=== PATIENT | female | born 1990 | race Caucasian/White ===

== ENCOUNTER 2017-01-30 22:40 | Emergency (ER) | payer OTHER ==
[~2017-01-30] VITALS: Ht 160 cm; Wt 54.4 kg
--- NOTE | ~2017-01-30 | EKG ---
PATIENT: LUIS MIGUEL LEAL UNIT #: [id number] Ventricular Rate: 104 BPM Atrial Rate: 104 BPM P-R Interval: 130 ms QRS Duration: 96 ms Q-T Interval: 342 ms QTC Calculation(Bezet): 449 ms P [place]: 59 degrees Calculated R [place]: 26 degrees Calculated T [place]: 52 degrees Diagnosis Line: Sinus tachycardia Diagnosis Line: Possible Left atrial enlargement Diagnosis Line: Incomplete right bundle branch block Diagnosis Line: Abnormal ECG Diagnosis Line: No previous ECGs available Diagnosis Line: Confirmed by JULIET LACEY MD ([id number]) on 02/01/2017 Diagnosis Line: 7:27:04 AM INTERPRETING MD: ABHIJIT RODAS
--- NOTE | ~2017-01-30 | CR72 ---
[facility] Service of [facility] & [facility] RADIOLOGY TEXT RESULTS PATIENT: LUIS MIGUEL LEAL LOCATION: [facility] : 89 UNIT #: [id number] AGE: [address]: Scott Mo MD SEX: F ORDER DR: [id number] [facility] [address] [place], [place] [address] [id number] E MR#: [id number] Acc #: [id number] NAME: LUIS MIGUEL LEAL : 1990 SEX: F STUDY DATE/TIME: 01/30/2017 23:38 UNIT: [facility] ROOM: STUDY DESCRIPTION: CR Chest Single View Portable Attending Physician: Scott Mo M.D. Ordering Physician: Scott Mo M.D. Primary Care Physician: Primary Care Physician No MEDICAL IMAGING REPORT This report is preliminary unless electronic signature is present EXAM Portable chest HISTORY Left side chest pain, fever and shortness of air today. FINDINGS The cardiac size and pulmonary vascularity are normal. Mild right thoracic curve. Approximately 1.0 cm nodule projected over the lateral right upper lung. Suggest comparison to prior x-rays if available. Old lower right rib fractures. No airspace consolidation or pleural effusion. IMPRESSION 1. No acute findings in the lungs. 2. No pleural effusions. 3. 10.0 mm nodular density over the lateral right upper lung. Comparison to prior outside chest x-rays if available is recommended. Otherwise, consider followup chest x-ray in 3-6 months. Dictated by... Tez Zamorano M.D. THIS IS AN ELECTRONICALLY VERIFIED REPORT Tez Zamorano M.D. at 02/01/2017 4:14 AM Luh TD: 01/31/2017 08:44 JOB #: [id number] MEDICAL IMAGING REPORT Page 1 of 1 COPY
[~2017-01-30 22:40] MED LIST: BACTRIM DS TABL1 TA1 PO; LEVAQUIN PO; PERCOCET 10/3251 TAB PO
[2017-01-30 23:44] LABS: BASOPHIL% 0.2 % (0-2.5); EOSINOPHIL% 0.2 % (0.0-7.0); HEMATOCRIT 37.1 % (35.0-45.0); HEMOGLOBIN 12.3 gm/dL (12.0-16.0); LYMPHOCYTE# 1.6 X10e3 (1.0-3.5); LYMPHOCYTE% 9.1 % (17.0-45.0); MEAN CORPUSCULAR HEMOGLOBIN 27.5 PG (28-34); MEAN CORPUSCULAR HGB CONC 33.1 g/dL (30-36); MONOCYTE% 5.5 % (3.0-12.0); NEUTROPHIL# 14.7 X10e3 (1.5-7.1); PLATELET COUNT 313 X10e3 (140-420); RED BLOOD COUNT 4.47 X10e (3.90-5.30); RED CELL DISTRIBUTION WIDTH 16.6 % (11.0-15.5); WHITE BLOOD COUNT 17.3 X10e3 (4.0-10.5)
[2017-01-30 23:45] LABS: POC - CKMB 1.4 ng/mL (0.0-7.9); POC - TROPONIN <0.05 ng/mL (<=0.05)
[2017-01-30 23:45] LABS: DIFF IND YES
[2017-01-30 23:58] LABS: ALBUMIN SERUM 4.8 g/dL (3.5-5.0); BILIRUBIN, DIRECT 0.2 mg/dL (0.0-0.2); BILIRUBIN,INDIRECT 1.3 mg/dL (0.0-0.9); BILIRUBIN,TOTAL 1.5 mg/dL (0.2-2.0); BUN/CREATININE RATIO 26.25; CALCIUM SERUM 9.1 mg/dL (8.4-10.2); CREATININE SERUM 0.8 mg/dL (0.6-1.4); GLOM FILT RATE Estimated 101.1 mL/min (>60); POTASSIUM 3.9 mmol/L (3.5-5.1); PROTEIN TOTAL SERUM 8.7 g/dL (6.0-8.3)
[2017-01-31 00:02] LABS: PLATELET ESTIMATE NORMAL (NORMAL)
[2017-01-31 00:03] LABS: ANISOCYTOSIS SL; OVALOCYTES PRESENT
== END 2017-01-31 00:20 | disposition left against medical advice (07) ==
LOC: CED 22:40
PROVIDERS: Emergency Medicine
DX: R50.9 Fever, unspecified (principal); F17.210 Nicotine dependence, cigarettes, uncomplicated; Z88.5 Allergy status to narcotic agent
CPT/HCPCS: 36415; 71010; 80048; 80076; 82553; 83605; 84484; 85025; 87040; 87077; 87186; 93005; 96361; 96374; 99285; J1885

== ENCOUNTER 2017-01-31 14:18 | Inpatient (IN) | payer OTHER ==
[~2017-01-31] VITALS: Ht 160 cm; Wt 62.0 kg
--- NOTE | ~2017-01-31 | MR112 ---
[facility] A Service of [facility] & [facility] RADIOLOGY TEXT RESULTS PATIENT: LUIS MIGUEL LEAL LOCATION: C2A 218-01 : [birth year] UNIT #: [id number] AGE: [address]: Jerald Dwyer MD SEX: F ORDER DR: [id number] [facility] [address] [place] [address] [place], [place] [address] [id number] I MR#: [id number] Acc #: [id number] NAME: LUIS MIGUEL LEAL : 1990 SEX: F STUDY DATE/TIME: 02/03/2017 12:36 UNIT: [facility] ROOM: 578 STUDY DESCRIPTION: MR Lumbar WWo Contrast Attending Physician: Usman Aponte M.D. Ordering Physician: Usman Aponte M.D. Primary Care Physician: No Primary Care Physician MRI CENTER REPORT This report is preliminary unless electronic signature is present. EXAM MRI of the lumbar spine with and without contrast, dated 02/03/2017. COMPARISON MRI thoracic spine with and without contrast, dated 02/03/2017. HISTORY Patient has pain in the mid and low back towards the right side for the last 2 months. FINDINGS Multisequence, multiplanar imaging of the lumbar spine was obtained with and without contrast. GFR measured greater than 60. 10 mL of MultiHance was administered intravenously. Vertebral body heights and alignment are preserved. Minimal degenerative disc signal loss is at L4-5. Conus terminates at inferior T12 close to T12-L1 disc. Signal of conus and cauda equina are within normal limits. Pre and paravertebral soft tissues do not demonstrate any significant abnormality. L1-2 to L3-4: Unremarkable. L4-5: Mild concentric disc bulge with superimposed small left foraminal to extraforaminal broad-based protrusion with mild inferior left neural foraminal narrowing. Tiny central protrusion is seen with no significant canal stenosis. L5-S1: Unremarkable. IMPRESSION 1. Mild degenerative changes are noted in the lumbar spine at L4-5 as described above. There is severe left foraminal to extraforaminal protrusion with mild left neural foraminal encroachment without significant nerve impingement. STS. [facility] A Service of [facility] & [facility] RADIOLOGY TEXT RESULTS PATIENT: LUIS MIGUEL LEAL LOCATION: A 218-01 : [birth year] UNIT #: [id number] AGE: [address]: Jerald Dwyer MD SEX: F ORDER DR: 2. No canal stenosis. 3. No abnormal enhancing lesions are noted in the spine. 4. Conus and cauda equina are within normal limits. Dictated by... Jamal Quesada M.D. THIS IS AN ELECTRONICALLY VERIFIED REPORT Jamal Quesada M.D. at 02/08/2017 7:04 PM CPR/jt TD: 02/03/2017 19:24 JOB #: [id number] MRI CENTER REPORT Page 1 of 1 COPY
--- NOTE | ~2017-01-31 | EKG ---
PATIENT: LUIS MIGUEL LEAL UNIT #: [id number] Ventricular Rate: 100 BPM Atrial Rate: 100 BPM P-R Interval: 132 ms QRS Duration: 92 ms Q-T Interval: 338 ms QTC Calculation(Bezet): 436 ms P [place]: 53 degrees Calculated R [place]: 24 degrees Calculated T [place]: 45 degrees Diagnosis Line: Normal sinus rhythm Diagnosis Line: Normal ECG Diagnosis Line: When compared with ECG of 30-JAN-2017 23:20, Diagnosis Line: (unconfirmed) Diagnosis Line: Incomplete right bundle branch block is no longer Diagnosis Line: Present Diagnosis Line: Confirmed by JULIET LACEY MD ([id number]) on 02/01/2017 Diagnosis Line: 7:17:12 PM INTERPRETING MD: ABHIJIT RODAS
--- NOTE | ~2017-01-31 | MR175 ---
[facility] A Service of [facility] & [facility] RADIOLOGY TEXT RESULTS PATIENT: LUIS MIGUEL LEAL LOCATION: A 218-01 : [birth year] UNIT #: [id number] AGE: [address]: Jerald Dwyer MD SEX: F ORDER DR: [id number] [id number] [facility] [place], [place] [address] [id number] I MR#: [id number] Acc #: [id number] NAME: LUIS MIGUEL LEAL : 1990 SEX: F STUDY DATE/TIME: 02/03/2017 12:16 UNIT: [facility] ROOM: 578 STUDY DESCRIPTION: MR Thoracic WWo Contrast Attending Physician: Usman Aponte M.D. Ordering Physician: Usman Aponte M.D. Primary Care Physician: Primary Care Physician No MRI CENTER REPORT This report is preliminary unless electronic signature is present. EXAM MRI of the thoracic spine with and without contrast dated 02/03/2017 COMPARISON MRI lumbar spine with and without contrast dated 02/03/2017, CT angiogram chest PE protocol dated 01/31/2017. HISTORY Mid back pain on the right side for 2 months. No history of trauma or cancer. TECHNIQUE Multisequence multiplanar imaging of the thoracic spine was obtained with and without contrast. GFR measured greater than 60. 10 mL of MultiHance was administered intravenously. FINDINGS Vertebral body heights and alignment are preserved. Intervertebral disc heights and signal are intact. No focal disc lesion, canal stenosis or neural foraminal narrowing. There is mild to moderate right-sided pleural effusion with underlying atelectasis. There is also an oval alveolar infiltrate noted on the left lower lobe, incompletely characterized on the current study. Refer to CT angiogram chest from earlier this week. Right upper lobe lung nodule is also seen in the coronal T2-weighted sequence (series 3, image 12). IMPRESSION 1. Thoracic spine does not demonstrate any significant abnormality. Cord is unremarkable. 2. There are some chest findings. They are better described and visualized in the CT angiogram chest from 01/31/2017. Refer to it. Dictated by... [facility] A Service of [facility] & [facility] RADIOLOGY TEXT RESULTS PATIENT: LUIS MIGUEL LEAL LOCATION: [facility] 218-01 : [birth year] UNIT #: [id number] AGE: [address]: Jerald Dwyer MD SEX: F ORDER DR: Jamal Quesada M.D. THIS IS AN ELECTRONICALLY VERIFIED REPORT Jamal Quesada M.D. at 02/08/2017 7:04 PM CPR/to TD: 02/03/2017 19:10 JOB #: [id number] MRI CENTER REPORT Page 1 of 1 COPY
--- NOTE | ~2017-01-31 | MR18 ---
[facility] A Service [facility] RADIOLOGY TEXT RESULTS PATIENT: LUIS MIGUEL LEAL LOCATION: [facility]01-03 : [birth year] UNIT #: [id number] AGE: [address]: Jerald Dwyer MD SEX: F ORDER DR: [id number] [address] [address] [id number] I MR#: [id number] Acc #: [id number] NAME: LUIS MIGUEL LEAL : 1990 SEX: F STUDY DATE/TIME: 02/04/2017 11:10 UNIT: [facility] ROOM: [facility] STUDY DESCRIPTION: MR Brain Wo Contrast Attending Physician: Usman Aponte M.D. Ordering Physician: Elle Pacheco M.D. Primary Care Physician: No Primary Care Physician MRI CENTER REPORT This report is preliminary unless electronic signature is present. EXAM MR brain without contrast. INDICATIONS Acute right eye vision changes. Septic pulmonary emboli. MRSA bacteremia. TECHNIQUE Multisequence, multiplanar MR imaging of the brain was performed without contrast. COMPARISON No comparisons available. FINDINGS No acute infarct on diffusion weighted imaging. No evidence of hydrocephalus or focal mass lesion. No mass effect or midline shift. Greater neck images are unremarkable. Included orbits and paranasal sinuses are unremarkable. IMPRESSION Negative noncontrast MRI of the brain. Dictated by... Jerry Mason M.D. THIS IS AN ELECTRONICALLY VERIFIED REPORT Jerry Mason M.D. at 02/07/2017 7:20 AM MADDY/brandie TD: 02/04/2017 23:10 JOB #: [id number] [facility] A Service [facility] RADIOLOGY TEXT RESULTS PATIENT: LUIS MIGUEL LEAL LOCATION: [facility] : [birth year] UNIT #: [id number] AGE: [address]: Jerald Dwyer MD SEX: F ORDER DR: MRI CENTER REPORT Page 1 of 1 COPY
--- NOTE | ~2017-01-31 | HP ---
Unit #: [id number] #: [id number] Patient: LUIS MIGUEL LEAL [id number] [address] [address] [id number] I MR#: [id number] NAME: LUIS MIGUEL LEAL ROOM: 577 Age: 26 Sex: F Admission Date: 01/31/2017 : 1990 Attending Physician: Daniella Vidal M.D. Primary Care Physician: Primary Care Physician No HISTORY AND PHYSICAL CHIEF COMPLAINT Rib pain with septic pulmonary emboli. HISTORY OF PRESENT ILLNESS This 26-year-old female with history of polysubstance abuse, Hepatitis-C, is admitted for septic pulmonary emboli. The patient was well until 2 days prior to admission when she began to experience bilateral pleuritic rib pain. She actually was seen in this emergency department late last evening but left AMA after there were concerns that she was possibly injecting drugs in the bathroom. Blood cultures were performed with one sats positive for gram positive cocci in chains. The patient returned to this emergency department with a low-grade fever, complaining of increasing rib pain. She was bolused with 2 liters of saline, and given Zosyn, Vancomycin, along with Ibuprofen and Tylenol. On examination she is quite diaphoretic, I believe I do hear a soft systolic murmur along the left sternal border. CT scan performed shows bilateral multiple nodular opacities with an area of cavitation concerning for septic pulmonary emboli. The patient denies cough with the above or any other symptoms. PAST MEDICAL HISTORY 1. Polysubstance abuse. The patient obtains needles through the needle exchange program, and states that uses clean needles. 2. Admission for hand cellulitis about 2014 treated with antibiotics. 3. Hepatitis-C. SOCIAL HISTORY The patient lives alone. She smokes 1 pack per day of tobacco, denies alcohol use, denies possibility of . She injects heroin. FAMILY HISTORY Diabetes mellitus. ALLERGIES Morphine. MEDICATIONS None. REVIEW OF SYSTEMS Notable for bilateral rib pain, diaphoresis, polysubstance abuse, Hepatitis-C, tobacco abuse. All other systems were reviewed and otherwise negative. Unit #: [id number] #: [id number] Patient: LUIS MIGUEL LEAL PHYSICAL EXAMINATION GENERAL APPEARANCE: Diaphoretic 26-year-old thin female, currently in no acute distress. VITAL SIGNS: Temp was as high at 100.4, pulse 108, respirations 16, B/P 133/85, O2 saturation 100% on room air. HEENT: Eyes - PERRLA, extraocular muscles are intact. Pharynx is benign. NECK: Supple without adenopathy or thyromegaly. CHEST: Clear. HEART: Normal S1 and S2 with a very soft systolic murmur I believe left sternal border and perhaps at the right upper sternal border. ABDOMEN: Bowel sounds are present. Bladder is full but otherwise no masses, no hepatosplenomegaly or tenderness. EXTREMITIES: Without edema. The patient has nail samoan making it difficulty for me to look for splinter hemorrhages over the fingernails, however on her arms multiple track anne are noted. NEUROLOGIC: The patient is mildly somnolent but easily arousable. Cranial nerves are intact and she has equal strength throughout. DIAGNOSTIC STUDIES LABORATORY: Hematocrit 32.9, white blood count 11, MCV 82, normal platelet count. Normal coags. SMA12 - sodium 131, chloride 98. Beta HCG negative. Urine tox screen positive for amphetamines, marijuana and opiates. Urinalysis is negative. IMAGING: Chest x-ray yesterday 1 cm lateral right lung density. CTA of the chest was performed tonight which was negative for PE. Multiple nodular opacities bilaterally with an area of consolidation concerning for multifocal infection, especially for septic pulmonary emboli. CARDIOVASCULAR: EKG - sinus rhythm, rate 100. Somewhat poor R-wave progression in V1 through V3, but unchanged from yesterday. ASSESSMENT 1. Septic pulmonary emboli, rule out tricuspid valve endocarditis. 2. Active polysubstance abuse. 3. Hepatitis-C. PLAN 1. Vancomycin and Zosyn will be continued pending cultures. 2. Infectious Disease to see consultation. 3. Obtain echo, patient may need a CORETTA. 4. Medications for opiate withdrawal. Of note, the patient's systolic blood pressure was as low as 90 in the ER, so I will not give Clonidine at this time. 5. Florastor. 6. DVT prophylaxis. 7. Check HIV. 8. Long-term prognosis is very guarded if the patient continues with IV drug abuse. At this point of time she does not wish to speak with social work. STAT * RESULT Dictated by Daniella Vidal M.D. Unit #: [id number] #: [id number] Patient: LUIS MIGUEL LEAL AML/ljd TD: 02/01/2017 03:25 JOB #: [id number] HISTORY AND PHYSICAL Page 1 of 1 X Daniella Vidal MD X HISTORY AND PHYSICAL
--- NOTE | ~2017-01-31 | CT16 ---
[facility] of [facility] RADIOLOGY TEXT RESULTS PATIENT: LUIS MIGUEL LEAL LOCATION: [facility] 578-01 : [birth year] UNIT #: [id number] AGE: [address]: Usman Aponte MD SEX: F ORDER DR: [id number] [place] [id number] [facility]. [place], [place] [address] [id number] I MR#: [id number] Acc #: [id number] NAME: LUIS MIGUEL LEAL : 1990 SEX: F STUDY DATE/TIME: 01/31/2017 19:57 UNIT: [facility] ROOM: [facility] STUDY DESCRIPTION: CT Angio Chest for PE Attending Physician: Daniella Vidal M.D. Ordering Physician: Chelsey Platt M.D. Primary Care Physician: No Primary Care Physician MEDICAL IMAGING REPORT This report is preliminary unless electronic signature is present EXAM CTA chest with contrast, 01/31/2017. HISTORY 26-year-old female with shortness of air for 2 days. History of IV drug abuse. COMPARISON None TECHNIQUE Helical scan performed through the chest following the timed bolus administration of IV contrast per PE protocol. Coronal 3-D MIP reconstructions. Sagittal reformatted images. This CT exam was performed with one or more of the following radiation dose reduction techniques: automatic exposure control, adjustment of mA and/or kV according to patient size, and iterative reconstruction. FINDINGS There is adequate opacification of the pulmonary arteries with no filling defects demonstrated. Thoracic aorta normal in course and caliber without dissection. Heart size is normal. No pericardial effusion. There are multiple nodular opacities noted throughout both lungs. There is a larger nodular opacity in the apical segment of the left lower lobe with developing cavitation. These findings are concerning for septic emboli and multifocal infection. No pleural effusions. No pneumothorax. Visualized upper abdomen is unremarkable. No acute bony abnormality. IMPRESSION 1. Negative for pulmonary emboli. [facility] A [facility] of [facility] RADIOLOGY TEXT RESULTS PATIENT: LUIS MIGUEL LEAL LOCATION: [facility] 578-01 : [birth year] UNIT #: [id number] AGE: [address]: Usman Aponte MD SEX: F ORDER DR: 2. Negative for thoracic aortic aneurysm/dissection. 3. Multiple nodular opacities noted throughout both lungs with an area of cavitation in the apical segment of the left lower lobe. Findings most concerning for multifocal infection/septic emboli. Dictated by... Keanu Castaneda M.D. THIS IS AN ELECTRONICALLY VERIFIED REPORT Keanu Castaneda M.D. at 02/01/2017 1:19 PM BYRON/aylin TD: 01/31/2017 23:50 JOB #: [id number] MEDICAL IMAGING REPORT Page 1 of 1 COPY
--- NOTE | ~2017-01-31 | CO ---
Unit #: [id number] #: [id number] Patient: LUIS MIGUEL LEAL [id number] [address] [place], [place] [address] [id number] I MR#: [id number] NAME: LUIS MIGUEL LEAL ROOM: 478 Age: 26 Sex: F Admission Date: 01/31/2017 : 1990 Attending Physician: Usman Aponte M.D. Consultation Date: 02/02/2017 CONSULTATION REPORT REASON FOR CONSULTATION Bacteremia, consult for transesophageal echocardiogram and bradycardia. HISTORY OF PRESENT ILLNESS This is a 26-year-old white female, who came into the emergency room with weakness and right ribcage pain that was pleuritic in nature, cough, fever, and chills. According to information, she came to the emergency room the night before, but left AMA after there was concern that she was possibly injecting drugs in the bathroom. The blood cultures that day were positive for gram-positive cocci unchanged, which later have come back as Strep pyogenes and MRSA. The patient had another set of cultures that is showing Streptococcus pyogenes. The patient said she has been having the symptoms for few days. She does admit to using IV heroin and obtains needles through the needle exchange program and she says she uses clean needles. The patient was bolused with 2 L of saline, given IV antibiotics after repeat cultures. There is on exam is soft systolic murmur along the left sternal border. The patient says a few years back, she was told she had some type of a "hole" in her aortic valve, but has never had a cardiac workup. CT scan of her chest showed bilateral multiple nodular opacities with an area of cavitation, concerning for septic pulmonary emboli. The patient's EKG showed sinus rhythm, poor R-wave progression, but through the night on telemetry, the patient's heart rate would drop in the 50s. 2D echo today shows vfkx-oa-qhgaccza aortic regurgitation, fjep-lv-ulykkite tricuspid regurgitation, with fzkx-jl-iqibvrdr pulmonary artery hypertension. EF was 55% to 60%. No indication of any vegetation, but with her bacteremia along with her symptoms and probable septic pulmonary emboli and bradycardia, they have asked us to assist with evaluation and management. On exam and interview, the patient denies any chest pain. She complains of ribcage area pain. She denies any palpitations. She says she had periods of dizziness when she was using drugs, but no syncopal episode. She denies any increased lower extremity edema and says she has never had ischemic heart disease workup. PAST MEDICAL HISTORY 1. Polysubstance abuse, she admits to using heroin. She also is tested positive for marijuana. She uses needles through the needle exchange program. 2. In 2015, had head cellulitis, treated with antibiotics. 3. Hepatitis C. 4. Nicotine abuse. HOME MEDICATIONS Unit #: [id number] #: [id number] Patient: LUIS MIGUEL LEAL Reports none. ALLERGIES Morphine. SOCIAL HISTORY The patient lives alone. She smokes a pack of cigarettes a day. She denies alcohol or illicit drug abuse. She admits to using IV heroin. She did test positive for marijuana. FAMILY HISTORY Diabetes mellitus in her sibling. REVIEW OF SYSTEMS See details in HPI. PHYSICAL EXAMINATION GENERAL: Ms. Leal is a 26-year-old white female, in no acute respiratory distress. She is awake, alert, and oriented, answers questions appropriately. VITAL SIGNS: Blood pressure is 138/66, heart rate is 108, respirations 18, temperature 98.5, O2 saturations 99% on room air. NECK: Trachea midline. No thyromegaly or lymphadenopathy. Normal carotid upstrokes. No jugular venous distention. HEART: S1, S2. Regular rate and rhythm. Soft systolic murmur at left sternal border over aortic region. LUNGS: Very diminished with some scattered coarse rales in bases, especially in the left lower lung. ABDOMEN: Soft and nontender. EXTREMITIES: Pedal pulses are palpable. No pedal edema. DIAGNOSTIC STUDIES LABORATORY RESULTS: Glucose 111, BUN 8, creatinine 0.5, eGFR is 132.7. Sodium 136, potassium is 3.2, chloride is 108, CO2 of 21, calcium is 8.1, magnesium is 1.9, total protein 7.3, albumin 3.8, bilirubin total 0.9, AST 18, ALT 12, alkaline phosphatase is 61. Lactic acid 0.7. B-hCG qualitative was negative. WBCs 12.9, hemoglobin 10.8, hematocrit 32.7 and platelets is 202. On admission, the patient's hemoglobin was 12.3, hematocrit 37.1, her WBCs were 17.3. Initial cardiac enzymes; CK-MB is 1.4, troponin less than 0.04; CK-MB is 1.4, troponin less than 0.05. HIV is pending. Urine tox screen is positive for amphetamines, marijuana and opiates. Urinalysis; 1+ urobilinogen, otherwise unremarkable. Blood cultures from 01/30/2017 are positive for Streptococcus pyogenes group A and MRSA. Blood cultures from 01/31/2017 are positive for 2 sets growing Streptococcus pyogenes. IMAGING STUDIES: Chest x-ray shows no acute findings except a 10 mm nodular density over the lateral right upper lung. No pleural effusions. Unit #: [id number] #: [id number] Patient: LUIS MIGUEL LEAL CT of the chest with contrast was negative for pulmonary emboli, but did show some multiple nodular opacities throughout both lungs with an area of cavitation in the apical segment of the left lower lung. Findings are concerning for multifocal infection or septic emboli. EKG shows normal sinus rhythm with ventricular rate of 100 beats per minute, poor R-wave progression, some low voltage in lead III. Telemetry shows episodes of sinus bradycardia, heart rate in the 50s, which within a matter of a few seconds have increased back up over 60 beats per minute. No block or pauses noted. IMPRESSION 1. Septic pulmonary emboli, dyspnea, ribcage pain. 2. Active polysubstance abuse. 3. Hepatitis C. 4. Sinus bradycardia. 5. Bacteremia with Streptococcus pyogenes and methicillin-resistant Staphylococcus aureus, nicotine abuse. 6. Polysubstance abuse, heroin and marijuana use. 7. Hypokalemia. PLAN 1. Cardiology consult to assist with evaluation and management. 2. Infectious Disease is requesting a transesophageal echocardiogram to evaluate for bacteremia due to the positive blood cultures, her symptoms and using IV drugs. 3. We will schedule that for in the morning. 4. Discussed with the patient risks and benefits including risk of possible aspiration, esophageal trauma, or reaction to the sedatives. The patient verbalized understanding and agrees to proceed. 5. As far as her bradycardia, she does not have any pauses or appears to have any first-degree AV block or sustained low rate. The lowest has been documented is in the 50s. We will check a TSH. Currently, she is not on any pain medication that should affect her heart rate, though we will continue to monitor her closely. 6. On exam, there are no signs or symptoms of unstable angina and acute congestive heart failure. 7. The patient is on IV antibiotics. 8. Repeat blood cultures have been ordered since she has been on IV antibiotics for over 24 hours. 9. We will obtain a TSH and evaluate. 10. The patient's potassium is being supplemented per protocol. We will monitor her BUN and creatinine, and her electrolytes and supplement as needed. 11. Further recommendations pending per Dr. Shearer and after the [facility]. Dictated by... Valente Monterroso/thai TD: 02/04/2017 08:20 JOB #: [id number] CC: [facility] Cardiology [facility] Unit #: [id number] #: [id number] Patient: LUIS MIGUEL LEAL CONSULTATION REPORT Page 1 of 1 X [place] Nena Singleton APRN X CONSULTATION REPORT
--- NOTE | ~2017-01-31 | CO ---
Unit #: [id number] #: [id number] Patient: LUIS MIGUEL LEAL [id number] [facility] [address] [facility]. [place], [place] [address] [id number] I MR#: [id number] NAME: LUIS MIGUEL LEAL ROOM: 218 Age: 27 Sex: F Admission Date: 01/31/2017 : 1990 Attending Physician: Jerald Dwyer M.D. Primary Care Physician: No Primary Care Physician Consultation Date: 02/05/2017 CONSULTATION REPORT REASON FOR HER CONSULTATION Depression, anxiety, opiate abuse and withdrawal. HISTORY OF PRESENT ILLNESS Ms. Blackman is a 27-year-old white female seen in room 478 bed-1 on 02/05/17 at [facility]. Patient dressed casually, lying comfortably in bed. The patient has a family in the room. Patient reported admitted on the . Has a recent history of IV opiate abuse. Reporting having withdrawals, anxiety, nervousness, restlessness of her legs, trouble sleeping, severe anxiety, hot and cold sweats, mood lability, sad, depressed. Patient denied any suicidal or homicidal ideation, denied any psychotic symptom. Patient vital signs - 97.1, 76, 20, 100/50, oxygen saturation 99%. PAST PSYCHIATRIC HISTORY Remarkable for history of depression, history of IV drug abuse. Drug of choice heroin. No history of any suicide attempt or any inpatient treatment. MEDICAL HISTORY AND MEDICATION HISTORY Medical history is remarkable for: 1. History of hepatitis C. 2. History of MRSA. ALLERGIES Allergies to morphine. HOME MEDICATIONS None. FAMILY HISTORY AND SOCIAL HISTORY The patient has a good support system. No history of abuse. History of substance abuse. Drug of choice heroin. REVIEW OF SYSTEMS Complete review of systems is remarkable except as mentioned above. MENTAL STATUS EXAMINATION VITAL SIGNS: Please see above. GENERAL APPEARANCE: Patient dressed casually in hospital attire, lying comfortably in bed. Attention span and concentration fair. Speech - regular rate, coherent. Oriented in time, place and person. Mood and affect sad, dysphoric. Thought process coherent. Thought content - Unit #: [id number] #: [id number] Patient: LUIS MIGUEL LEAL patient denied any thoughts of harming self or others or any hallucination but anxious, nervous. Recent and memory fair. Language intact. Fund of knowledge fair. Insight and judgment fair to slightly impaired. DIAGNOSIS PSYCHIATRIC: 1. Opiate use disorder, severe - F11.20. 2. Major depressive disorder, recurrent, severe - F33.2. 3. Anxiety disorder, NOS - F40.01. ASSESSMENT/PLAN 1. Supportive psychotherapy and psychoeducation provided to patient. 2. Educated about benefits and side effects of medication and course and prognosis of illness. 3. Advised to start Vistaril 25 mg 3x a day for anxiety. Continue with Neurontin 100 mg twice daily for withdrawal symptoms, Desyrel 50 mg at bedtime for sleep, Requip 1 mg at bedtime for restlessness of her legs. If needed, consider adding Zoloft. Also plan for patient to follow up in [facility] program upon discharge. In the meantime, continue with the current treatment. Please feel free to call if any questions. Telephone number [phone]. Dictated by... Ricardo Augustine/jennifer TD: 02/08/2017 07:21 JOB #: [id number] CONSULTATION REPORT Page 1 of 1 X Scar Sheridan MD X CONSULTATION REPORT
--- NOTE | ~2017-01-31 | CO ---
Unit #: [id number] #: [id number] Patient: LUIS MIGUEL LEAL [id number] [address] [address] [id number] I MR#: [id number] NAME: LUIS MIGUEL LEAL ROOM: 578 Age: 26 Sex: F Admission Date: 01/31/2017 : 1990 Attending Physician: Usman Aponte M.D. Primary Care Physician: Joan Primary Care Physician Requesting Physician: Daniella Vidal M.D. Consultation Date: 02/01/2017 CONSULTATION REPORT REASON FOR CONSULTATION Positive blood cultures. HISTORY OF PRESENT ILLNESS Ms. Leal is a 26-year-old female with a history of polysubstance abuse, hepatitis C, who is being admitted for complaint of pleuritic pain around her ribs for the past few days. She was seen in the emergency department two nights ago but had left AMA at some point for possibly injecting drugs into the bathroom. She stated that she has had this pleuritic pain around her ribs for about the last two days. She denies any back pain, any new cellulitis, new rashes, denies any nausea or vomiting. She does complain of fevers. She stated she last used IV heroin about five days ago. Her current blood cultures are one of two Staph. aureus as well as group A strep. She has a 2-D echo that is pending. She has been started on vancomycin and Zosyn. We are now being consulted for antibiotic management. She also had a CT scan that was performed which was showing bilateral multiple nodular opacities with an area of cavitation concerning for septic emboli. PAST MEDICAL HISTORY Polysubstance abuse, admission for hand cellulitis in 2014 as well as hepatitis C, has also been admitted previously for drug rehabilitation. SOCIAL HISTORY The patient lives alone. She is a current smoker, denies any alcohol use. She is a current IV heroin user. FAMILY HISTORY Noncontributory. ALLERGIES Morphine. CURRENT MEDICATIONS Reviewed. The patient is on Zosyn and vancomycin. REVIEW OF SYSTEMS All negative except for those stated in the HPI. PHYSICAL EXAMINATION GENERAL APPEARANCE: Diaphoretic 26-year (1) female currently up and walking around to the bathroom and back to her bed in no apparent distress. CURRENT VITAL SIGNS: Temperature 98.2. Pulse 70. Respiration 17. Blood Unit #: [id number] #: [id number] Patient: LUIS MIGUEL LEAL pressure 123/58. NECK: Supple. HEENT: Head is normocephalic. Eyes: Pupils equal, round and reactive to light and accommodation. CHEST: Diminished throughout. HEART: Regular rate. ABDOMEN: Soft, nontender, positive bowel sounds. EXTREMITIES: Without edema. The patient typically stated that she injects into her hands. No signs of cellulitis or erythema in bilateral hands or on arms. NEUROLOGIC: Awake, alert, oriented, up and walking around. DIAGNOSTIC STUDIES LABORATORY: Creatinine is 0.5. BUN is 8. Glucose is 111. Potassium is 3.3. White count is 12.9. Hemoglobin is 10.8. Platelets are 202. HIV screen is also negative. Lactic acid is 0.7. Urine drug screen is positive for amphetamines, marijuana and opiates. MICROBIOLOGY DATA: January 30, blood cultures one of two with MRSA and group A strep. Repeat blood cultures are pending. IMAGING: CTA with contrast is concerning for multiple nodular opacities throughout both lungs with an area of cavitation in the apical segment of the left lower lobes concerning for multifocal infectious and septic emboli. ASSESSMENT AND PLAN Staph. aureus and group A strep bacteremia with septic pulmonary emboli in a patient with current IV drug use. At this point, we will rule out infective endocarditis. At this point, the patient denies any type of back pain or leg or joint pain. Doubt any type of discitis or osteomyelitis but will follow closely. We will continue vancomycin and Zosyn at this time. We will follow up on 2-D echo. We will follow up on repeat cultures. Further recommendations to come from , which he will see patient later today. Dictated by... Paty Zabmrano APRN for Ricardo Vanegas TD: 02/02/2017 08:34 JOB #: [id number] CONSULTATION REPORT Page 1 of 1 X X CONSULTATION REPORT
--- NOTE | ~2017-01-31 | CO ---
Unit #: [id number] #: [id number] Patient: LUIS MIGUEL LEAL [id number] [address] [address] [id number] I MR#: [id number] NAME: LUIS MIGUEL LEAL ROOM: 218 Age: 27 Sex: F Admission Date: 01/31/2017 : 1990 Attending Physician: Jerald Dwyer M.D. Primary Care Physician: Primary Care Physician No CONSULTATION REPORT REASON FOR CONSULTATION Followup. DISCUSSION Ms. Luis Miguel Leal is a 27-year-old white female, seen in room 478, bed 1 on 02/07/2017. The patient diagnosed with endocarditis and reported still having problem with sleep and anxiety. The patient is currently on Neurontin, Vistaril, and trazodone. The patient has a history of IV opiate abuse. The patient reported recent use recently. The patient's urine drug screen was positive on for amphetamine, marijuana, opiate. The patient's vital signs; temperature 98.4, pulse 70, respirations 16, blood pressure 138/80, and oxygen saturation 100%. The patient denied any thoughts of harming self or others or any psychotic symptom. REVIEW OF SYSTEMS Complete review of systems is unremarkable except as mentioned above. MENTAL STATUS EXAMINATION The patient's vital signs, please see above. General appearance; the patient dressed casually. Attention span and concentration, fair. Speech, regular rate and coherent. Oriented in time, place, and person. Mood and affect, sad and dysphoric. Thought process, coherent. Thought content, the patient denied any thoughts of harming self or others, but reported having problem with the anxiety and trouble sleeping. Recent and remote memory, fair. Language, intact. Fund of knowledge, fair to slightly impaired. DIAGNOSES Psychiatric: Opioid use disorder, severe, F11.20; amphetamine use disorder, severe, F15.20; cannabis abuse, moderate, F12.20; mood disorder, not otherwise specified, F32.9. Secondary diagnosis: Deferred. Medical diagnosis: Please refer to H and P. Stressors: Psychosocial stressor. ASSESSMENT/PLAN 1. Supportive psychotherapy and psychoeducation provided to the patient. 2. Educated about benefits and side effects of medication and course and prognosis of illness. 3. Recommending at this time to increase Neurontin to 300 mg b.i.d. and increase trazodone to 100 mg at bedtime. If needed, consider further Unit #: [id number] #: [id number] Patient: LUIS MIGUEL LEAL adjustment of medication. Please feel free to call if any question, telephone #[phone]. Dictated by... Ricardo Augustine/thai TD: 02/07/2017 15:05 JOB #: [id number] CONSULTATION REPORT Page 1 of 1 X Scar Sheridan MD X CONSULTATION REPORT
--- NOTE | ~2017-01-31 | TOC ---
Unit #: [id number] #: [id number] Patient: LUIS MIGUEL LEAL [id number] [address] [place], [place] [address] [id number] I MR#: [id number] NAME: LUIS MIGUEL LEAL ROOM: 478 Age: 27 Sex: F Admission Date: 01/31/2017 : 1990 Attending Physician: Jerald Dwyer M.D. Primary Care Physician: Primary Care Physician No TRANSFER OF CARE SUMMARY PRIMARY CARE PROVIDER None PRINCIPAL DIAGNOSES 1. Sepsis secondary to Methicillin-resistant Staphylococcus aureus and Streptococcus pyogenes bacteremia. 2. Septic pulmonary emboli. 3. Right eye vision loss, with pending evaluation. 4. Intravenous drug abuse including heroin and amphetamines. 5. Polysubstance abuse including heroin, amphetamines and marijuana. 6. Hepatitis C. 7. Asymptomatic bradycardia. 8. Tobaccoism. 9. Moderate protein malnutrition. CONSULTANTS Elvis Pollack M.D. - Infectious Disease Zeeetienne Shearer M.D. - Cardiology. PROCEDURES 1. Two-dimensional echocardiogram on February 01, 2017, with an ejection fraction of 60%, mild to moderate aortic regurgitation, mild mitral regurgitation and mild to moderate tricuspid regurgitation noted. Right ventricular systolic pressure of 43 mmHg. 2. Transesophageal echocardiogram on February 03, 2017, with the ejection fraction of 60-65%. No shunt across the anterior atrial septum, mild to moderate aortic regurgitation, mild to moderate mitral regurgitation, mild tricuspid regurgitation noted. No evidence of vegetation or left atrial appendage. Aorta appeared normal. 3. Chest x-ray on January 30, 2017, with no acute findings. There is a 10 mm nodular density over the right upper lobe. 4. CT angiogram of the chest on January 31, 2017, which was negative for PE. Patient had multiple nodular opacities in both lungs with a cavitation segment in the apical segment of the left lower lobe. 5. MRI of thoracic spine with and without contrast on February 03, 2017, without any significant abnormality. No evidence of infection. 6. MRI with and without contrast on February 03, 2017, with degenerative change in the lumbar spine at L4-L5, severe left foraminal to extraforaminal protrusion and left neural foraminal encroachment without severe nerve impingement. No canal stenosis. No evidence of infection. 7. MRI of the brain without contrast on February 04, 2017, which was normal. Unit #: [id number] #: [id number] Patient: LUIS MIGUEL LEAL CLINICAL HISTORY/HOSPITAL COURSE Ms. Leal is a 26-year-old female who presents to the emergency department with rib pain after leaving against medical advice two days prior. Blood cultures from that admission were positive for gram positive cocci in chains. The patient returned to the emergency department with low-grade fever and rib pain. Chest x-ray was done as was CT angiogram of the chest revealing septic pulmonary emboli and the patient was subsequently admitted. Blood cultures were done upon presentation ultimately revealed both Methicillin-resistant Staphylococcus aureus and Streptococcus pyogenes bacteremia. Dr. Pollack was consulted and the patient was placed on appropriate antibiotic therapy. Cardiology was also consulted and the patient underwent transesophageal echocardiogram, which was negative for endocarditis. The patient has refused repeat blood cultures on both February 03 and February 04, but today one blood culture was received and is still currently pending. She is being maintained on IV Vancomycin and clindamycin for now. The source of her bacteremia is unclear and gallium scan is currently pending. MRI of thoracic and lumbar spine was negative. The patient informs me she has had difficulty with right eye vision, described as black spots ever since admission. MRI of the brain was unremarkable and ophthalmology consultation is still currently pending. She is high risk for an intraocular infection given her bacteremia. The patient also had bradycardia with heart rate down to the 50s, but it is asymptomatic. TSH is normal. No further workup planned. The patient also has underlying hepatitis C and will require outpatient treatment. HIV was negative. I anticipate patient will need to be discharged home by a short stay for IV antibiotics, but is still pending, again, ophthalmology and gallium scan and a repeat blood culture. Further hospital course to be dictated as an addendum. Dictated by... Elle Pacheco M.D. [facility]/ally TD: 02/06/2017 17:40 JOB #: [id number] TRANSFER OF CARE SUMMARY Page 1 of 1 X Elle Pacheco MD TRANSFER OF CARE SUMMARY
[2017-01-31 18:27] LABS: POC - CKMB 1.4 ng/mL (0.0-7.9); POC - TROPONIN <0.05 ng/mL (<=0.05)
[2017-01-31 18:37] LABS: BASOPHIL% 0.4 % (0-2.5); EOSINOPHIL% 0.1 % (0.0-7.0); HEMATOCRIT 32.9 % (35.0-45.0); HEMOGLOBIN 11.1 gm/dL (12.0-16.0); LYMPHOCYTE# 1.8 X10e3 (1.0-3.5); LYMPHOCYTE% 16.5 % (17.0-45.0); MEAN CELL VOLUME 82.1 FL (83-96); MEAN CORPUSCULAR HEMOGLOBIN 27.8 PG (28-34); MEAN CORPUSCULAR HGB CONC 33.8 g/dL (30-36); MEAN PLATELET VOLUME 7.6 FL (6.5-11.5); MONOCYTE# 0.8 X10e3 (0-1.0); MONOCYTE% 7.5 % (3.0-12.0); NEUTROPHIL# 8.3 X10e3 (1.5-7.1); NEUTROPHIL% 75.5 % (40-75); PLATELET COUNT 227 X10e3 (140-420); RED BLOOD COUNT 4.01 X10e (3.90-5.30); RED CELL DISTRIBUTION WIDTH 15.8 % (11.0-15.5)
[2017-01-31 18:38] LABS: DIFF IND NO
[2017-01-31 18:54] LABS: PROTHROMBIN TIME (PATIENT) 10.5 SECONDS (10.0-11.7)
[2017-01-31 18:59] LABS: ALBUMIN SERUM 3.8 g/dL (3.5-5.0); BILIRUBIN, DIRECT 0.1 mg/dL (0.0-0.2); BILIRUBIN,INDIRECT 0.8 mg/dL (0.0-0.9); BILIRUBIN,TOTAL 0.9 mg/dL (0.2-2.0); BUN/CREATININE RATIO 18.75; CALCIUM SERUM 8.5 mg/dL (8.4-10.2); CREATININE SERUM 0.8 mg/dL (0.6-1.4); GLOM FILT RATE Estimated 101.1 mL/min (>60); POTASSIUM 3.7 mmol/L (3.5-5.1); PROTEIN TOTAL SERUM 7.3 g/dL (6.0-8.3)
[2017-01-31 19:06] LABS: URINE SOURCE CLEAN CATCH
[2017-01-31 19:12] LABS: URINE APPEARANCE CLEAR; URINE BILIRUBIN NEG (NEG); URINE BLOOD NEG (NEG); URINE COLOR YELLOW; URINE GLUCOSE NEG (NEG); URINE KETONE NEG (NEG); URINE LEUKOCYTE ESTERASE NEG (NEG); URINE NITRATE NEG (NEG); URINE PH 6.5 (5-8); URINE PROTEIN NEG (NEG); URINE SPECIFIC GRAVITY 1.007 (1.003-1.035)
[2017-01-31 19:17] LABS: CULTURE INDICATED? NO
[2017-01-31 19:22] LABS: AMPHETAMINE POS (NEG); BARBITURATES NEG (NEG); BENZODIAZEPINES NEG (NEG); COCAINE NEG (NEG); MARIJUANA POS (NEG); OPIATES POS (NEG); TRICYCLIC ANTIDEPRESSANTS NEG (NEG); U METHADONE NEG (NEG)
[2017-02-01 06:48] LABS: HEMATOCRIT 32.7 % (35.0-45.0); HEMOGLOBIN 10.8 gm/dL (12.0-16.0); MEAN CELL VOLUME 82.6 FL (83-96); MEAN CORPUSCULAR HEMOGLOBIN 27.3 PG (28-34); MEAN CORPUSCULAR HGB CONC 33.1 g/dL (30-36); MEAN PLATELET VOLUME 7.8 FL (6.5-11.5); RED BLOOD COUNT 3.96 X10e (3.90-5.30); RED CELL DISTRIBUTION WIDTH 16.3 % (11.0-15.5); WHITE BLOOD COUNT 12.9 X10e3 (4.0-10.5)
[2017-02-01 07:10] LABS: CALCIUM SERUM 8.1 mg/dL (8.4-10.2); CREATININE SERUM 0.5 mg/dL (0.6-1.4); GLOM FILT RATE Estimated 132.7 mL/min (>60); POTASSIUM 3.3 mmol/L (3.5-5.1)
[2017-02-02 11:18] LABS: MAGNESIUM 1.9 mg/dL (1.6-3.0); POTASSIUM 3.2 mmol/L (3.5-5.1)
[2017-02-02 18:14] LABS: BASOPHIL% 0.3 % (0-2.5); EOSINOPHIL# 0.1 X10e3 (0-0.7); EOSINOPHIL% 0.8 % (0.0-7.0); LYMPHOCYTE# 2.3 X10e3 (1.0-3.5); LYMPHOCYTE% 22.8 % (17.0-45.0); MEAN CELL VOLUME 82.6 FL (83-96); MEAN CORPUSCULAR HEMOGLOBIN 27.6 PG (28-34); MEAN CORPUSCULAR HGB CONC 33.4 g/dL (30-36); MONOCYTE# 0.6 X10e3 (0-1.0); MONOCYTE% 5.9 % (3.0-12.0); NEUTROPHIL% 70.2 % (40-75); PLATELET COUNT 222 X10e3 (140-420); RED BLOOD COUNT 3.99 X10e (3.90-5.30); RED CELL DISTRIBUTION WIDTH 15.8 % (11.0-15.5)
[2017-02-02 18:18] LABS: DIFF IND NO
[2017-02-02 18:32] LABS: INR 0.9; PROTHROMBIN TIME (PATIENT) 10.1 SECONDS (10.0-11.7)
[2017-02-02 18:41] LABS: ALBUMIN SERUM 2.9 g/dL (3.5-5.0); BILIRUBIN,TOTAL 0.3 mg/dL (0.2-2.0); CALCIUM SERUM 8.4 mg/dL (8.4-10.2); CREATININE SERUM 0.5 mg/dL (0.6-1.4); GLOM FILT RATE Estimated 132.7 mL/min (>60); POTASSIUM 3.5 mmol/L (3.5-5.1); PROTEIN TOTAL SERUM 6.1 g/dL (6.0-8.3)
[2017-02-03 07:13] LABS: HEMATOCRIT 30.4 % (35.0-45.0); HEMOGLOBIN 10.2 gm/dL (12.0-16.0); MEAN CELL VOLUME 82.4 FL (83-96); MEAN CORPUSCULAR HEMOGLOBIN 27.6 PG (28-34); MEAN CORPUSCULAR HGB CONC 33.5 g/dL (30-36); MEAN PLATELET VOLUME 8.3 FL (6.5-11.5); RED BLOOD COUNT 3.69 X10e (3.90-5.30)
[2017-02-03 07:36] LABS: INR 0.9
[2017-02-03 07:43] LABS: ALBUMIN SERUM 2.8 g/dL (3.5-5.0); ALKALINE PHOSPHATASE 62 U/L (32-92); ALT (SGPT) 12 U/L (10-40); AST (SGOT) 12 U/L (10-42); CALCIUM SERUM 8.2 mg/dL (8.4-10.2); CARBON DIOXIDE 21 mmol/L (22-31); CHLORIDE 110 mmol/L (100-111); CREATININE SERUM 0.6 mg/dL (0.6-1.4); GLOM FILT RATE Estimated 124.9 mL/min (>60); GLUCOSE FASTING 105 mg/dL (70-110); MAGNESIUM 1.9 mg/dL (1.6-3.0); POTASSIUM 3.5 mmol/L (3.5-5.1); PROTEIN TOTAL SERUM 6.2 g/dL (6.0-8.3); SODIUM 139 mmol/L (135-145)
[2017-02-03 07:46] LABS: BILIRUBIN,TOTAL 0.3 mg/dL (0.2-2.0); BLOOD UREA NITROGEN <5 mg/dL (9-23); BUN/CREATININE RATIO 8.33
[2017-02-04 07:26] LABS: ALBUMIN SERUM 2.7 g/dL (3.5-5.0); BILIRUBIN,TOTAL 0.3 mg/dL (0.2-2.0); CALCIUM SERUM 8.4 mg/dL (8.4-10.2); CREATININE SERUM 0.5 mg/dL (0.6-1.4); GLOM FILT RATE Estimated 132.7 mL/min (>60); PROTEIN TOTAL SERUM 6.4 g/dL (6.0-8.3)
[2017-02-04 08:06] LABS: HEMATOCRIT 35.1 % (35.0-45.0); HEMOGLOBIN 11.7 gm/dL (12.0-16.0); MEAN CELL VOLUME 81.9 FL (83-96); MEAN CORPUSCULAR HEMOGLOBIN 27.4 PG (28-34); MEAN CORPUSCULAR HGB CONC 33.4 g/dL (30-36); MEAN PLATELET VOLUME 8.7 FL (6.5-11.5); RED BLOOD COUNT 4.29 X10e (3.90-5.30); RED CELL DISTRIBUTION WIDTH 16.3 % (11.0-15.5); WHITE BLOOD COUNT 7.5 X10e3 (4.0-10.5)
[2017-02-06 16:58] LABS: URINE APPEARANCE CLOUDY; URINE BILIRUBIN NEG (NEG); URINE BLOOD NEG (NEG); URINE COLOR YELLOW; URINE GLUCOSE NEG (NEG); URINE KETONE NEG (NEG); URINE LEUKOCYTE ESTERASE NEG (NEG); URINE NITRATE NEG (NEG); URINE PH 5.5 (5-8); URINE PROTEIN NEG (NEG); URINE SPECIFIC GRAVITY 1.019 (1.003-1.035); URINE UROBILINOGEN 0.2 MG/DL (NEG)
[2017-02-07 13:49] LABS: BASOPHIL# 0.1 X10e3 (0-0.3); EOSINOPHIL# 0.3 X10e3 (0-0.7); EOSINOPHIL% 3.8 % (0.0-7.0); HEMATOCRIT 40.5 % (35.0-45.0); HEMOGLOBIN 13.6 gm/dL (12.0-16.0); LYMPHOCYTE# 2.4 X10e3 (1.0-3.5); LYMPHOCYTE% 32.4 % (17.0-45.0); MEAN CELL VOLUME 83.3 FL (83-96); MEAN CORPUSCULAR HEMOGLOBIN 27.9 PG (28-34); MEAN CORPUSCULAR HGB CONC 33.6 g/dL (30-36); MEAN PLATELET VOLUME 7.2 FL (6.5-11.5); MONOCYTE# 0.4 X10e3 (0-1.0); MONOCYTE% 4.8 % (3.0-12.0); NEUTROPHIL# 4.2 X10e3 (1.5-7.1); PLATELET COUNT 426 X10e3 (140-420); RED BLOOD COUNT 4.86 X10e (3.90-5.30); RED CELL DISTRIBUTION WIDTH 15.9 % (11.0-15.5); WHITE BLOOD COUNT 7.3 X10e3 (4.0-10.5)
[2017-02-07 14:05] LABS: DIFF IND NO
[2017-02-07 14:49] LABS: CALCIUM SERUM 9.3 mg/dL (8.4-10.2); CREATININE SERUM 0.5 mg/dL (0.6-1.4); GLOM FILT RATE Estimated 131.7 mL/min (>60); POTASSIUM 4.3 mmol/L (3.5-5.1)
== END 2017-02-07 17:39 | disposition left against medical advice (07) | DRG 871 ==
LOC: CFTX 14:18 → CED 14:18 → CFTX 17:08 → C5C 22:15 → C2A 22:15 → CEDOF 22:15 → C4C 22:15 → CED 22:19 → CEDOF 22:19 → C5C 22:54 → CEDOF 22:54 → C5C 02-01 06:02 → C4C 02-04 12:05 → C2A 02-07 13:11
PROVIDERS: Internal Medicine; Nurse Practitioner; Student in an Organized Health Care Education/Training Program
PROC: B32TYZZ Computerized Tomography (CT Scan) of Left Pulmonary Artery using Other Contrast (ICD-10-PCS; 2017-01-31)
PROC: B32SYZZ Computerized Tomography (CT Scan) of Right Pulmonary Artery using Other Contrast (ICD-10-PCS; 2017-01-31)
PROC: B246YZZ Ultrasonography of Right and Left Heart using Other Contrast (ICD-10-PCS; 2017-02-01)
PROC: B246ZZ4 Ultrasonography of Right and Left Heart, Transesophageal (ICD-10-PCS; principal; 2017-02-03)
DX: A41.02 Sepsis due to Methicillin resistant Staphylococcus aureus (principal); I26.90 Septic pulmonary embolism without acute cor pulmonale; E87.2 Acidosis; E44.0 Moderate protein-calorie malnutrition; F15.20 Other stimulant dependence, uncomplicated; F11.20 Opioid dependence, uncomplicated; H54.61 Unqualified visual loss, right eye, normal vision left eye; Z88.5 Allergy status to narcotic agent; Z86.19 Personal history of other infectious and parasitic diseases; F17.200 Nicotine dependence, unspecified, uncomplicated; E87.6 Hypokalemia; R00.1 Bradycardia, unspecified; Z83.3 Family history of diabetes mellitus; D64.9 Anemia, unspecified; R07.81 Pleurodynia; F12.20 Cannabis dependence, uncomplicated; F39 Unspecified mood [affective] disorder
CPT/HCPCS: 36415; 70551; 71010; 71275; 72157; 72158; 80048; 80053; 80076; 80202; 80307; 81003; 82553; 83605; 83735; 83880; 84132; 84443; 84484; 84703; 85025; 85027; 85610; 85730; 87040; 87077; 87086; 87186; 87806; 93005; 93306; 93312; 94010; 96361; 96365; 96366; 96368; 96374; 99285; A9577; J1650; J1885; J2250; J2543; J2550; J3010; J3370; J3475; Q9967